=== PATIENT | female | born 1955 | race Caucasian/White ===

== ENCOUNTER 2018-11-06 12:02 | Emergency (ER) | payer MEDICARE, OTHER ==
[~2018-11-06] VITALS: Ht 165.1 cm; Wt 91.4 kg
[2018-11-06 15:08] VITALS: BP 165/90
== END 2018-11-06 16:34 | disposition home or self-care (01) ==
LOC: ED 15:40
DX: M71.22 Synovial cyst of popliteal space [Baker], left knee (principal); R60.0 Localized edema; F17.200 Nicotine dependence, unspecified, uncomplicated
CPT/HCPCS: 36415; 71046; 80053; 83880; 85025; 93005; 93970; 99284